=== PATIENT | male | born 1945 | race Caucasian/White ===

== ENCOUNTER 2019-10-17 07:54 | Day surgery (SDC) | payer MEDICARE ==
[~2019-10-17] VITALS: Ht 167.6 cm; Wt 59.4 kg
[2019-10-17] MEDS ORDERED: normal saline 1000ml 1,000 ML IV PRN (08:40)
[2019-10-17] MEDS ORDERED: albumin 25% 100mL bottle x 1 IV PRN (08:40)
[2019-10-17] MEDS ORDERED: CALC300T4 PO (08:47)
[2019-10-17] MEDS ORDERED: SPIR25TA PO (08:47)
[2019-10-17] MEDS ORDERED: MULT-933 PO (08:47)
[2019-10-17] MEDS ORDERED: ONDA8TAB12 PO (08:47)
[2019-10-17] MEDS ORDERED: FURO-150 PO (08:47)
[2019-10-17] MEDS ORDERED: LOPE2CAP PO (08:47)
[2019-10-17] MEDS ORDERED: CAPE500T15 PO (08:47)
[2019-10-17] MEDS ORDERED: GABA-530 PO (08:47)
[2019-10-17 08:48] VITALS: BP 113/76
== END 2019-10-17 09:55 | disposition home or self-care (01) ==
LOC: SSTAY O 07:54
PROVIDERS: ATTEND Radiology Diagnostic Radiology
DX: R14.0 Abdominal distension (gaseous) (principal); R16.0 Hepatomegaly, not elsewhere classified; I10 Essential (primary) hypertension; K21.9 Gastro-esophageal reflux disease without esophagitis; E78.00 Pure hypercholesterolemia, unspecified; Z90.49 Acquired absence of other specified parts of digestive tract; F17.210 Nicotine dependence, cigarettes, uncomplicated; Z85.848 Personal history of malignant neoplasm of other parts of nervous tissue; Z85.05 Personal history of malignant neoplasm of liver; Z91.041 Radiographic dye allergy status; Z79.899 Other long term (current) drug therapy; Z88.5 Allergy status to narcotic agent
CPT/HCPCS: 36415; 76705; 85610; J7030; 49083

== ENCOUNTER 2019-11-10 07:51 | Day surgery (SDC) | payer MEDICARE ==
[2019-11-10] VITALS (10 sets, daily range): BP systolic 80–108; BP diastolic 52–74
[~2019-11-10] VITALS: Ht 167.6 cm; Wt 62.8 kg
[~2019-11-10 07:51] MED LIST: CALC300T4 PO; CAPE500T15 PO; FURO-150 PO; GABA-530 PO; LOPE2CAP PO; MULT-933 PO; ONDA8TAB12 PO; SPIR25TA PO
[2019-11-10] MEDS ORDERED: normal saline 1000ml 1,000 ML IV PRN (08:25)
[2019-11-10] MEDS ORDERED: albumin 25% 100mL bottle x 1 IV PRN (08:25)
[2019-11-10] MEDS ORDERED: OSC500T PO (08:31)
[2019-11-10] MEDS ORDERED: IRON1CAP34 PO (08:31)
[2019-11-10] MEDS ORDERED: GLUC-133 PO (08:31)
== END 2019-11-10 10:30 | disposition home or self-care (01) ==
LOC: SSTAY O 07:51
PROVIDERS: ATTEND Radiology Vascular & Interventional Radiology
DX: R18.8 Other ascites (principal); I10 Essential (primary) hypertension; E78.00 Pure hypercholesterolemia, unspecified; K21.9 Gastro-esophageal reflux disease without esophagitis; F17.210 Nicotine dependence, cigarettes, uncomplicated; Z88.5 Allergy status to narcotic agent; Z91.041 Radiographic dye allergy status; Z79.899 Other long term (current) drug therapy; Z85.09 Personal history of malignant neoplasm of other digestive organs
CPT/HCPCS: 49083; C1729; J7030